=== PATIENT | male | born 1965 | race Caucasian/White ===

== ENCOUNTER 2016-10-07 09:17 | Emergency (ER) | payer MEDICARE, MEDICAID ==
[~2016-10-07] VITALS: Ht 167.6 cm; Wt 70.0 kg
[2016-10-07] MEDS ORDERED: ONDANSETRON 2MG/ML, 2ML IVPush ONE (10:30)
[2016-10-07] MEDS ORDERED: SODIUM CHLORIDE 0.9% 1,000ML IVBOLUS ONE (10:30)
[2016-10-07] MEDS ORDERED: SODIUM CHLORIDE FLUSH 10ML SYR IVF ONE (10:30)
[2016-10-07] MEDS ORDERED: ONDANSETRON 2MG/ML, 2ML ONE (10:47)
[2016-10-07] MEDS ORDERED: HYDROmorphone 1 MG/ML, 1ML ONE ×2 (10:47→11:19)
[2016-10-07 10:49] LABS: HEMOGLOBIN 15.5 g/dL (13.7-18.0)
[2016-10-07] MEDS: HYDROmorphone 1 MG/ML, 1ML IVPush PRN ×2 (10:58→11:23)
[2016-10-07 11:01] LABS: ASPARTATE AMINO TRANSFERASE 23 U/L (15-37); BLOOD UREA NITROGEN 17 mg/dL (7-18)
[2016-10-07] MEDS ORDERED: OMNIPAQUE 350 MG/ML, 100ML BOTTLE ONE (13:22)
[2016-10-07] MEDS ORDERED: Insulin SC (13:59)
[2016-10-07] MEDS ORDERED: METF500T4 PO (13:59)
[2016-10-07 14:05] VITALS: BP 123/64
== END 2016-10-07 14:13 | disposition home or self-care (01) ==
LOC: ED 13:12
DX: T18.5XXA Foreign body in anus and rectum, initial encounter (principal); K80.20 Calculus of gallbladder without cholecystitis without obstruction; E10.8 Type 1 diabetes mellitus with unspecified complications; Z79.4 Long term (current) use of insulin; X58.XXXA Exposure to other specified factors, initial encounter; Y93.89 Activity, other specified; Y92.89 Other specified places as the place of occurrence of the external cause; Y99.8 Other external cause status
CPT/HCPCS: 36415; 74020; 74177; 80053; 81003; 85025; 96361; 96374; 96375; 99285; J1170; J2405; J7030; Q9967

== ENCOUNTER 2016-11-13 06:34 | Emergency (ER) | payer MEDICARE, MEDICAID ==
[~2016-11-13] VITALS: Ht 177.8 cm; Wt 71.8 kg
[~2016-11-13 06:34] MED LIST: Insulin SC; METF500T4 PO
[2016-11-13] MEDS ORDERED: SODIUM CHLORIDE FLUSH 10ML SYR IVF ONE (07:00)
[2016-11-13] MEDS ORDERED: SODIUM CHLORIDE 0.9% 1,000ML IVBOLUS ONE (07:00)
[2016-11-13 07:27] LABS: BLOOD UREA NITROGEN 10 mg/dL (7-18)
[2016-11-13] MEDS ORDERED: INSU100V8 SQ (07:27)
[2016-11-13] MEDS ORDERED: INSU100C5 SQ-INSULIN (07:27)
[2016-11-13 09:05] VITALS: BP 137/77
== END 2016-11-13 09:22 | disposition home or self-care (01) ==
LOC: ED 06:52
DX: J02.8 Acute pharyngitis due to other specified organisms (principal); E11.9 Type 2 diabetes mellitus without complications; Z59.0 Homelessness
CPT/HCPCS: 36415; 71010; 80048; 82040; 85025; 93005; 96360; 96361; 99285; J7030

== ENCOUNTER 2018-05-29 22:31 | Inpatient (IN) | payer MEDICARE, MEDICAID ==
[~2018-05-29] VITALS: Ht 177.8 cm; Wt 68.0 kg
[~2018-05-29 22:31] MED LIST changes: +INSU100C5 SQ-INSULIN; +INSU100V8 SQ; +METF500T17 PO; -METF500T4 PO
[2018-05-29] MEDS ORDERED: ONDANSETRON 2MG/ML, 2ML IVPush ONE (23:00)
[2018-05-29] MEDS ORDERED: SODIUM CHLORIDE 0.9% 1,000ML IVBOLUS ONE (23:00)
[2018-05-29 23:07] LABS: MEAN CORPUSCULAR HGB CONC 34.3 g/dL (33.2-36.2); MEAN CORPUSCULAR VOLUME 93.3 fL (81-97); MEAN PLATELET VOLUME 7.6 fL (7.4-10.4); PLATELET COUNT 286 x10^3/uL (130-400); RED BLOOD COUNT 5.41 x10^6/uL (4.38-5.82); RED CELL DISTRIBUTION WIDTH 13.1 % (9.4-14.8)
[2018-05-29 23:19] LABS: ALANINE AMINOTRANSFERASE 18 U/L (12-78); ANION GAP 15 mmol/L (5-15); CALCIUM 9.3 mg/dL (8.5-10.1); CHLORIDE 97 mmol/L (98-107)
[2018-05-29 23:21] LABS: ALKALINE PHOSPHATASE 95 U/L (45-117); BILIRUBIN,TOTAL 0.5 mg/dL (0.2-1.0); TOTAL PROTEIN 8.4 g/dL (6.4-8.2)
[2018-05-29 23:24] LABS: MD YES
[2018-05-29 23:25] LABS: LYMPH#(MANUAL) 0.75 x10^3/uL (1-3.4); LYMPHS% (MANUAL) 3 % (22-44); MONOS#(MANUAL) 1.26 x10^3/uL (0.3-2.7); MONOS% (MANUAL) 5 % (2-9); SEG#(MANUAL) 23.09 x10^3/uL (1.8-6.8); SEGS% (MANUAL) 92 % (42-75)
[2018-05-29 23:26] LABS: <PLATELET ESTIMATE> ADEQUATE; <PLT MORPHOLOGY> NORMAL PLT MORPH; <RBC MORPHOLOGY> NORMAL
[2018-05-29 23:28] LABS: TROPONIN I < 0.015 ng/mL (0.000-0.045)
[2018-05-29] MEDS ORDERED: ONDANSETRON 2MG/ML, 2ML ONE (23:45)
[2018-05-30] MEDS ORDERED: SODIUM CHLORIDE 0.9% 1,000 ML IV ONE (04:16)
[2018-05-30] MEDS ORDERED: ONDANSETRON 2MG/ML, 2ML ONE (04:29)
[2018-05-30] MEDS ORDERED: ONDANSETRON 2MG/ML, 2ML IVPush PRN (04:30)
[2018-05-30] MEDS ORDERED: METOCLOPRAMIDE 5 MG/ML, 2ML IVPush PRN (05:00)
[2018-05-30] MEDS ORDERED: hydrALAzine 20 MG/ML, 1ML IVPush PRN (05:00)
[2018-05-30] MEDS ORDERED: ACETAMINOPHEN 325 MG TABLET PO PRN (05:00)
[2018-05-30 05:17] VITALS: BP 163/104
[2018-05-30] MEDS: LORazepam 2 MG/ML, 1ML IVPush PRN (05:39)
[2018-05-30] MEDS: SODIUM CHLORIDE 0.9% 1,000 ML IV SCH ×2 (05:41→14:30)
[2018-05-30] MEDS: POTASSIUM CHLORIDE 20 MEQ, MAGNESIUM SULFATE 2 GM, THIAMINE 200 MG, MVI ADULT 10 ML, FO... IV SCH ×2 (05:41→08:50)
[2018-05-30 07:00] VITALS: BP 125/82
[2018-05-30] MEDS ORDERED: INSULIN LISPRO 100 UNITS/ML, PEN SQ-INSULIN SCH (07:00)
[2018-05-30] MEDS: HEPARIN 5,000 UNITS/ML, 1ML SQ SCH ×2 (08:18→21:10)
[2018-05-30] MEDS: NICOTINE 21 MG/24 HR PATCH.TD24 TD SCH (08:18)
[2018-05-30] MEDS: INSULIN GLARGINE 100 UNITS/ML, PEN SQ-INSULIN SCH ×2 (08:19→21:15)
[2018-05-30] MEDS: INSULIN LISPRO 100 UNITS/ML, PEN SQ-INSULIN SCH ×4 (08:19→21:00)
[2018-05-30] MEDS ORDERED: SODIUM CHLORIDE 0.9% 1,000ML IVBOLUS ONE ×2 (08:30→10:00)
[2018-05-30 08:45] LABS: ALBUMIN 3.3 g/dL (3.4-5.0); ANION GAP 16 mmol/L (5-15); CHLORIDE 101 mmol/L (98-107); CREATININE 1.24 mg/dL (0.7-1.3)
[2018-05-30] MEDS ORDERED: INSULIN GLARGINE 100 UNITS/ML, PEN SQ-INSULIN STA (08:52)
[2018-05-30 09:38] LABS: MICROSCOPIC NOT IND
[2018-05-30 09:47] LABS: AMPHETAMINE SCREEN, URINE Negative (Negative); BARBITURATE SCREEN, URINE Negative (Negative); BENZODIAZEPINE SCREEN, URINE Negative (Negative); CANNABINOID SCREEN, URINE Negative (Negative); COCAINE SCREEN, URINE Negative (Negative); METHADONE SCREEN, URINE Negative (Negative); OPIATE SCREEN, URINE Negative (Negative)
[2018-05-30 10:17] LABS: O2 FLOW ROOM AIR L/min
[2018-05-30 10:45] LABS: CULTURE INDICATED? NO
[2018-05-30 11:51] LABS: ACETONE, URINE Large (80mg/dL) (Negative)
[2018-05-30 12:14] LABS: ACETONE, SERUM Large (80mg/dL) mg/dL (Negative)
[2018-05-30 13:10] VITALS: BP 151/81
[2018-05-30] MEDS: ONDANSETRON 2MG/ML, 2ML IVPush PRN (16:28)
[2018-05-30 17:42] LABS: ANION GAP 8 mmol/L (5-15); CALCIUM 7.5 mg/dL (8.5-10.1); CHLORIDE 108 mmol/L (98-107)
[2018-05-30 17:43] LABS: CREATININE 0.95 mg/dL (0.7-1.3)
[2018-05-30 19:56] VITALS: BP 162/92
[2018-05-30] MEDS: PROMETHAZINE 25 MG/ML, 1ML IM PRN (21:20)
[2018-05-30 23:06] LABS: ANION GAP 10 mmol/L (5-15); CALCIUM 7.8 mg/dL (8.5-10.1); CHLORIDE 105 mmol/L (98-107); CREATININE 0.65 mg/dL (0.7-1.3)
[2018-05-31 02:11] VITALS: BP 143/97
[2018-05-31] MEDS: ONDANSETRON 2MG/ML, 2ML IVPush PRN ×2 (04:38→17:45)
[2018-05-31] MEDS: SODIUM CHLORIDE 0.9% 1,000 ML IV SCH ×2 (05:00→14:30)
[2018-05-31 05:34] LABS: BASOPHILS # (AUTO) 0.04 x10^3/uL (0-0.1); BASOPHILS % (AUTO) 0 % (0-1); EOSINOPHILS % (AUTO) 0 % (1-7); LYMPHOCYTES # (AUTO) 2.79 x10^3/uL (1-3.4); LYMPHOCYTES % (AUTO) 21 % (22-44); MD NO; MEAN CORPUSCULAR HEMOGLOBIN 32.5 pg (27.5-34.5); MEAN CORPUSCULAR HGB CONC 35.1 g/dL (33.2-36.2); MEAN CORPUSCULAR VOLUME 92.7 fL (81-97); MEAN PLATELET VOLUME 8.2 fL (7.4-10.4); MONOCYTES # (AUTO) 0.84 x10^3/uL (0.2-0.8); MONOCYTES % (AUTO) 6 % (2-9); NEUTROPHILS # (AUTO) 9.63 x10^3/uL (1.8-6.8); NEUTROPHILS % (AUTO) 72 % (42-75); PLATELET COUNT 207 x10^3/uL (130-400); RED BLOOD COUNT 4.64 x10^6/uL (4.38-5.82); RED CELL DISTRIBUTION WIDTH 12.9 % (9.4-14.8)
[2018-05-31 05:41] LABS: ALBUMIN 3.1 g/dL (3.4-5.0); ANION GAP 12 mmol/L (5-15); CALCIUM 7.7 mg/dL (8.5-10.1); CHLORIDE 101 mmol/L (98-107)
[2018-05-31 05:47] LABS: ALANINE AMINOTRANSFERASE 14 U/L (12-78); ALKALINE PHOSPHATASE 72 U/L (45-117); BILIRUBIN,TOTAL 0.8 mg/dL (0.2-1.0); CREATININE 0.67 mg/dL (0.7-1.3); TOTAL PROTEIN 6.6 g/dL (6.4-8.2)
[2018-05-31] MEDS ORDERED: POTASSIUM CHLORIDE 20 MEQ TAB.ER.PRT PO ONE (06:30)
[2018-05-31] MEDS: INSULIN LISPRO 100 UNITS/ML, PEN SQ-INSULIN SCH ×4 (07:00→20:44)
[2018-05-31 07:26] VITALS: BP_SYST 112; BP_SYST 146; BP_DIAS 74; BP_DIAS 92
[2018-05-31] MEDS: INSULIN GLARGINE 100 UNITS/ML, PEN SQ-INSULIN SCH ×2 (08:16→21:00)
[2018-05-31] MEDS: HEPARIN 5,000 UNITS/ML, 1ML SQ SCH ×2 (08:17→20:41)
[2018-05-31] MEDS: NICOTINE 21 MG/24 HR PATCH.TD24 TD SCH (08:17)
[2018-05-31] MEDS: PROMETHAZINE 25 MG/ML, 1ML IM PRN ×2 (08:57→22:18)
[2018-05-31 12:06] LABS: ANION GAP 10 mmol/L (5-15); CALCIUM 7.6 mg/dL (8.5-10.1); CHLORIDE 99 mmol/L (98-107)
[2018-05-31 13:08] VITALS: BP 137/89
[2018-05-31 17:35] LABS: ANION GAP 10 mmol/L (5-15); CHLORIDE 100 mmol/L (98-107); CREATININE 0.76 mg/dL (0.7-1.3)
[2018-05-31 19:44] VITALS: BP 154/98
[2018-05-31] MEDS: POTASSIUM CHLORIDE 20 MEQ TAB.ER.PRT PO SCH (20:38)
[2018-05-31] MEDS ORDERED: GLUCAGON 1 MG IM PRN (23:00)
[2018-05-31] MEDS: SODIUM CHLORIDE FLUSH 10ML SYR IVF SCH (23:00)
[2018-05-31] MEDS ORDERED: DEXTROSE 50%, 50ML SYRINGE IVPush PRN (23:00)
[2018-05-31] MEDS ORDERED: DEXTROSE 4 GM TAB.CHEW PO PRN (23:00)
[2018-05-31 23:37] LABS: CHLORIDE 99 mmol/L (98-107)
[2018-05-31 23:38] LABS: ANION GAP 11 mmol/L (5-15); CALCIUM 8.2 mg/dL (8.5-10.1); CREATININE 0.63 mg/dL (0.7-1.3)
[2018-06-01] MEDS: ONDANSETRON 2MG/ML, 2ML IVPush PRN ×2 (01:22→22:15)
[2018-06-01 02:35] VITALS: BP 154/106
[2018-06-01 04:21] VITALS: BP 142/91
[2018-06-01] MEDS: SODIUM CHLORIDE 0.9% 1,000 ML IV SCH ×2 (05:44→16:23)
[2018-06-01] MEDS: INSULIN LISPRO 100 UNITS/ML, PEN SQ-INSULIN SCH ×4 (07:00→22:01)
[2018-06-01] MEDS: SODIUM CHLORIDE FLUSH 10ML SYR IVF SCH ×2 (07:02→22:02)
[2018-06-01 07:29] VITALS: BP 127/90
[2018-06-01] MEDS: ONDANSETRON ODT 4 MG PO PRN ×2 (07:51→16:23)
[2018-06-01] MEDS: HEPARIN 5,000 UNITS/ML, 1ML SQ SCH ×2 (07:52→22:01)
[2018-06-01] MEDS: NICOTINE 21 MG/24 HR PATCH.TD24 TD SCH (07:55)
[2018-06-01] MEDS: POTASSIUM CHLORIDE 20 MEQ TAB.ER.PRT PO SCH ×2 (07:59→16:31)
[2018-06-01 08:10] LABS: ANION GAP 10 mmol/L (5-15); BASOPHILS # (AUTO) 0.02 x10^3/uL (0-0.1); BASOPHILS % (AUTO) 0 % (0-1); CALCIUM 8.3 mg/dL (8.5-10.1); CHLORIDE 99 mmol/L (98-107); CREATININE 0.64 mg/dL (0.7-1.3); EOSINOPHILS # (AUTO) 0.01 x10^3/uL (0-0.4); EOSINOPHILS % (AUTO) 0 % (1-7); LYMPHOCYTES # (AUTO) 2.58 x10^3/uL (1-3.4); LYMPHOCYTES % (AUTO) 29 % (22-44); MD NO; MEAN CORPUSCULAR HEMOGLOBIN 32.3 pg (27.5-34.5); MEAN CORPUSCULAR HGB CONC 34.7 g/dL (33.2-36.2); MEAN PLATELET VOLUME 7.8 fL (7.4-10.4); MONOCYTES # (AUTO) 0.69 x10^3/uL (0.2-0.8); MONOCYTES % (AUTO) 8 % (2-9); NEUTROPHILS # (AUTO) 5.48 x10^3/uL (1.8-6.8); NEUTROPHILS % (AUTO) 62 % (42-75); PLATELET COUNT 217 x10^3/uL (130-400); RED BLOOD COUNT 4.85 x10^6/uL (4.38-5.82); RED CELL DISTRIBUTION WIDTH 12.8 % (9.4-14.8)
[2018-06-01 08:11] LABS: ALBUMIN 3.1 g/dL (3.4-5.0)
[2018-06-01] MEDS: INSULIN GLARGINE 100 UNITS/ML, PEN SQ-INSULIN SCH ×3 (09:00→22:02)
[2018-06-01 12:09] VITALS: BP 135/90
[2018-06-01] MEDS ORDERED: POTASSIUM CHLORIDE 20 MEQ TAB.ER.PRT PO ONE (18:00)
[2018-06-01 20:23] VITALS: BP 147/102
[2018-06-02] MEDS: SODIUM CHLORIDE 0.9% 1,000 ML IV SCH ×3 (02:10→21:17)
[2018-06-02 02:51] VITALS: BP 145/95
[2018-06-02] MEDS: INSULIN LISPRO 100 UNITS/ML, PEN SQ-INSULIN SCH ×4 (07:00→21:17)
[2018-06-02 07:14] LABS: ALBUMIN 2.8 g/dL (3.4-5.0); ANION GAP 8 mmol/L (5-15); CALCIUM 8.7 mg/dL (8.5-10.1); CHLORIDE 104 mmol/L (98-107); CREATININE 0.65 mg/dL (0.7-1.3)
[2018-06-02 07:32] VITALS: BP 113/74
[2018-06-02] MEDS: INSULIN GLARGINE 100 UNITS/ML, PEN SQ-INSULIN SCH ×2 (07:47→21:17)
[2018-06-02] MEDS: SODIUM CHLORIDE FLUSH 10ML SYR IVF SCH ×2 (09:00→20:53)
[2018-06-02] MEDS: HEPARIN 5,000 UNITS/ML, 1ML SQ SCH ×2 (09:54→20:52)
[2018-06-02] MEDS: NICOTINE 21 MG/24 HR PATCH.TD24 TD SCH (09:55)
[2018-06-02] MEDS ORDERED: POTASSIUM CHLORIDE 20 MEQ TAB.ER.PRT PO ONE (12:30)
[2018-06-02 13:33] VITALS: BP 167/95
[2018-06-02] MEDS: ONDANSETRON 2MG/ML, 2ML IVPush PRN ×2 (13:36→20:53)
[2018-06-02 19:36] VITALS: BP 164/105
[2018-06-03 02:23] VITALS: BP 130/83
[2018-06-03 07:42] VITALS: BP 97/66
[2018-06-03] MEDS: INSULIN LISPRO 100 UNITS/ML, PEN SQ-INSULIN SCH ×4 (08:04→20:36)
[2018-06-03] MEDS: SODIUM CHLORIDE 0.9% 1,000 ML IV SCH (08:06)
[2018-06-03] MEDS: SODIUM CHLORIDE FLUSH 10ML SYR IVF SCH ×2 (08:06→20:35)
[2018-06-03 08:19] LABS: ALBUMIN 2.8 g/dL (3.4-5.0); ANION GAP 7 mmol/L (5-15); CALCIUM 8.3 mg/dL (8.5-10.1); CHLORIDE 100 mmol/L (98-107); CREATININE 0.78 mg/dL (0.7-1.3)
[2018-06-03] MEDS: HEPARIN 5,000 UNITS/ML, 1ML SQ SCH ×2 (09:25→20:35)
[2018-06-03] MEDS: NICOTINE 21 MG/24 HR PATCH.TD24 TD SCH (09:26)
[2018-06-03] MEDS: INSULIN GLARGINE 100 UNITS/ML, PEN SQ-INSULIN SCH (09:26)
[2018-06-03 12:56] VITALS: BP 112/72
[2018-06-03 19:43] VITALS: BP 143/83
[2018-06-03] MEDS ORDERED: INSULIN GLARGINE 100 UNITS/ML, PEN SQ-INSULIN SCH (21:00)
[2018-06-04 01:09] VITALS: BP 122/73
[2018-06-04] MEDS: LORazepam 2 MG/ML, 1ML IVPush PRN (02:58)
[2018-06-04] MEDS: INSULIN LISPRO 100 UNITS/ML, PEN SQ-INSULIN SCH (06:15)
[2018-06-04 07:42] LABS: CALCIUM 8.3 mg/dL (8.5-10.1); CHLORIDE 103 mmol/L (98-107)
[2018-06-04 07:45] LABS: ALBUMIN 2.7 g/dL (3.4-5.0); ANION GAP 7 mmol/L (5-15); CREATININE 0.72 mg/dL (0.7-1.3)
[2018-06-04] MEDS: HEPARIN 5,000 UNITS/ML, 1ML SQ SCH (08:05)
[2018-06-04] MEDS: NICOTINE 21 MG/24 HR PATCH.TD24 TD SCH (08:05)
[2018-06-04] MEDS: SODIUM CHLORIDE FLUSH 10ML SYR IVF SCH (08:05)
[2018-06-04 08:46] VITALS: BP 106/62
== END 2018-06-04 09:22 | disposition left against medical advice (07) | DRG 682 ==
LOC: ED 22:50 → EDIP 05-30 04:16 → 4NOR 05-30 04:59
PROVIDERS: ADMIT Hospitalist; ATTEND Hospitalist
DX: N17.9 Acute kidney failure, unspecified (principal); E11.10 Type 2 diabetes mellitus with ketoacidosis without coma; R65.11 Systemic inflammatory response syndrome (SIRS) of non-infectious origin with acute organ dysfunction; E87.1 Hypo-osmolality and hyponatremia; F17.200 Nicotine dependence, unspecified, uncomplicated; E86.1 Hypovolemia; F10.20 Alcohol dependence, uncomplicated; Z53.21 Procedure and treatment not carried out due to patient leaving prior to being seen by health care provider; Z59.0 Homelessness; E11.649 Type 2 diabetes mellitus with hypoglycemia without coma; E86.0 Dehydration; E87.6 Hypokalemia; F25.9 Schizoaffective disorder, unspecified; M54.2 Cervicalgia; M54.9 Dorsalgia, unspecified; R00.0 Tachycardia, unspecified; E11.65 Type 2 diabetes mellitus with hyperglycemia; Z79.4 Long term (current) use of insulin
CPT/HCPCS: 36415; 36600; 71045; 80048; 80053; 80069; 80307; 81003; 82009; 82010; 82803; 82947; 82962; 83605; 83690; 83735; 84100; 84145; 84484; 85025; 87040; 93005; 96361; 96374; 96375; 99285; G0378; J1644; J2405; J2550; J3411; J3475; J3480; J7042; Q0162; J1815; J2060; J2765; J7030

== ENCOUNTER 2018-08-06 19:57 | Inpatient (IN) | payer MEDICAID, MEDICARE ==
[~2018-08-06] VITALS: Ht 175.3 cm; Wt 69.7 kg
[2018-08-06] MEDS ORDERED: CALCIUM CHLORIDE 10%, 10ML SYR ONE (20:16)
[2018-08-06] MEDS ORDERED: SODIUM BICARBONATE 1 MEQ/ML, 50ML VIAL ONE (20:17)
[2018-08-06] MEDS ORDERED: FUROSEMIDE 40 MG/4 ML ONE (20:17)
[2018-08-06] MEDS ORDERED: DEXTROSE 50%, 50ML SYRINGE ONE (20:17)
[2018-08-06] MEDS ORDERED: INSULIN REGULAR 100 UNITS/ML, 3ML VIAL ONE (20:18)
[2018-08-06 20:21] LABS: MEAN CORPUSCULAR HEMOGLOBIN 31.2 pg (27.5-34.5); MEAN CORPUSCULAR HGB CONC 32.6 g/dL (33.2-36.2); MEAN CORPUSCULAR VOLUME 95.5 fL (81-97); MEAN PLATELET VOLUME 9.1 fL (7.4-10.4); PLATELET COUNT 338 x10^3/uL (130-400); RED BLOOD COUNT 5.46 x10^6/uL (4.38-5.82); RED CELL DISTRIBUTION WIDTH 13.6 % (9.4-14.8)
[2018-08-06] MEDS ORDERED: INSULIN REGULAR 100 UNITS/ML, 3ML VIAL IVPush ONE (20:30)
[2018-08-06] MEDS ORDERED: SODIUM BICARB 8.4%, 50ML SYRINGE IVPush ONE (20:30)
[2018-08-06] MEDS ORDERED: SODIUM CHLORIDE 0.9% 1,000ML IVBOLUS ONE (20:30)
[2018-08-06] MEDS ORDERED: ALBUTEROL 0.5%, 20ML NPPB ONE (20:30)
[2018-08-06] MEDS ORDERED: CALCIUM CHLORIDE 10%, 10ML SYR IVPush ONE (20:30)
[2018-08-06] MEDS ORDERED: SODIUM POLY SULFONATE UDC 15 GM/60 ML PO ONE (20:30)
[2018-08-06] MEDS ORDERED: SODIUM CHLORIDE FLUSH 10ML SYR IVF ONE ×2 (20:30)
[2018-08-06] MEDS ORDERED: DEXTROSE 50%, 50ML SYRINGE IVPush ONE (20:30)
[2018-08-06] MEDS ORDERED: FUROSEMIDE 40 MG/4 ML IVPush ONE (20:30)
[2018-08-06 20:31] LABS: ALANINE AMINOTRANSFERASE 17 U/L (12-78); ALBUMIN 3.9 g/dL (3.4-5.0); ANION GAP 32 mmol/L (5-15); CALCIUM 10.1 mg/dL (8.5-10.1); CHLORIDE 91 mmol/L (98-107); CREATININE 2.15 mg/dL (0.7-1.3)
[2018-08-06] MEDS ORDERED: ALBUTEROL 0.5%, 20ML ONE (20:31)
[2018-08-06 20:33] LABS: ALKALINE PHOSPHATASE 133 U/L (45-117); BILIRUBIN,TOTAL 0.7 mg/dL (0.2-1.0); TOTAL PROTEIN 8.9 g/dL (6.4-8.2)
[2018-08-06 20:36] LABS: ACETONE, SERUM Large (80mg/dL) mg/dL (Negative)
[2018-08-06 20:52] LABS: MD YES
[2018-08-06] MEDS ORDERED: ONDANSETRON 2MG/ML, 2ML ONE (20:54)
[2018-08-06 20:55] LABS: BAND#(MANUAL) 0.62 x10^3/uL; BANDS%(MANUAL) 4 % (0-7); BASOS#(MANUAL) 0.16 x10^3/uL (0-0.1); BASOS% (MANUAL) 1 % (0-1); LYMPH#(MANUAL) 2.17 x10^3/uL (1-3.4); LYMPHS% (MANUAL) 14 % (22-44); METAMYELOCYTES# (MANUAL) 0.31 x10^3/uL (0-0); METAMYELOCYTES% (MANUAL) 2 % (0-1); MONOS#(MANUAL) 0.93 x10^3/uL (0.3-2.7); MONOS% (MANUAL) 6 % (2-9); SEG#(MANUAL) 11.32 x10^3/uL (1.8-6.8); SEGS% (MANUAL) 73 % (42-75)
[2018-08-06 20:56] LABS: <PLATELET ESTIMATE> ADEQUATE; <PLT MORPHOLOGY> NORMAL PLT MORPH; <RBC MORPHOLOGY> NORMAL
[2018-08-06] MEDS ORDERED: REGULAR INSULIN 62.5 UNITS in SODIUM CHLORIDE 0.9% 249.375 ML IV PRN (21:15)
[2018-08-06] MEDS ORDERED: PANTOPRAZOLE 40 MG IV ONE (21:28)
[2018-08-06] MEDS: PANTOPRAZOLE 40 MG IV IVPush SCH (21:29)
[2018-08-06] MEDS ORDERED: BISACODYL 10 MG SUPP PR PRN (21:30)
[2018-08-06] MEDS ORDERED: DOCUSATE 100 MG CAPSULE PO PRN (21:30)
[2018-08-06] MEDS ORDERED: OXYcodone IR 5MG TABLET PO PRN (21:30)
[2018-08-06] MEDS ORDERED: morphine SULFATE 10 MG/ML, 1ML IVPush PRN (21:30)
[2018-08-06] MEDS ORDERED: ONDANSETRON 2MG/ML, 2ML IVPush PRN (21:30)
[2018-08-06] MEDS ORDERED: PROMETHAZINE 25 MG/ML, 1ML IM PRN (21:30)
[2018-08-06] MEDS ORDERED: ONDANSETRON ODT 4 MG PO PRN (21:30)
[2018-08-06] MEDS ORDERED: LABETALOL 5MG/ML, 20ML IVPush PRN (21:30)
[2018-08-06] MEDS ORDERED: POLYETHYLENE GLYCOL 17 GM PACKET PO PRN (21:30)
[2018-08-06] MEDS ORDERED: hydrALAzine 20 MG/ML, 1ML IVPush PRN (21:30)
[2018-08-06] MEDS: SODIUM CHLORIDE 0.9% 1,000 ML IV SCH (21:30)
[2018-08-06 22:34] LABS: HEMOGLOBIN A1C 10.2 % (4.2-6.3)
--- NOTE | 2018-08-06 23:34 | NUR ---
FSBS READ "HIGH". INSULINE INCREASED PER PROTOCOL. NOW RUNNING AT 7.2 UNITS/HR. CONFIRMED WITH DOE AWAD
[2018-08-06 23:57] LABS: MICROSCOPIC NOT IND
[2018-08-07 00:10] LABS: CULTURE INDICATED? NO
[2018-08-07 00:34] LABS: ANION GAP 26 mmol/L (5-15); CALCIUM 9.1 mg/dL (8.5-10.1); CHLORIDE 99 mmol/L (98-107); CREATININE 1.62 mg/dL (0.7-1.3)
[2018-08-07 00:43] LABS: FREE T4 (FREE THYROXINE) 1.07 ng/dL (0.76-1.46)
[2018-08-07] MEDS ORDERED: hydrALAzine 20 MG/ML, 1ML ONE (00:58)
--- NOTE | 2018-08-07 01:04 | NUR ---
PT MOSTLY SLEEPING. PT TOLERATING SMALL AMOUNT OF ICE CHIPS AT THIS TIME. PT DENIES FURTHER NEEDS AT THIS TIME.
--- NOTE | 2018-08-07 02:45 | NUR ---
PT MOSTLY SLEEPING. NAD. BED RAILS UPX2. CALL LIGHT ON LAP.
[2018-08-07 03:14] LABS: MEAN CORPUSCULAR HEMOGLOBIN 31.3 pg (27.5-34.5); MEAN CORPUSCULAR HGB CONC 33.7 g/dL (33.2-36.2); MEAN CORPUSCULAR VOLUME 92.9 fL (81-97); MEAN PLATELET VOLUME 8.4 fL (7.4-10.4); PLATELET COUNT 306 x10^3/uL (130-400); RED BLOOD COUNT 5.02 x10^6/uL (4.38-5.82); RED CELL DISTRIBUTION WIDTH 13.1 % (9.4-14.8)
[2018-08-07 03:25] LABS: ANION GAP 14 mmol/L (5-15); CALCIUM 8.4 mg/dL (8.5-10.1); CHLORIDE 108 mmol/L (98-107); CHOLESTEROL, TOTAL 211 mg/dL (140-239); CREATININE 1.43 mg/dL (0.7-1.3)
[2018-08-07 03:28] LABS: CHOL/HDL RATIO 4.6; HDL CHOL % 22 % (26-37); HDL CHOLESTEROL (DIRECT) 46 mg/dL (40-60); LDL CHOLESTEROL,CALCULATED 143 mg/dL (54-169); LDL/HDL RATIO 3.1 (0.5-3.0); MD YES; TRIGLYCERIDES 112 mg/dL (50-200); VLDL CHOLESTEROL 22 mg/dL (0-25)
[2018-08-07 03:29] LABS: BAND#(MANUAL) 0.64 x10^3/uL; BANDS%(MANUAL) 6 % (0-7); LYMPH#(MANUAL) 1.27 x10^3/uL (1-3.4); LYMPHS% (MANUAL) 12 % (22-44); MONOS#(MANUAL) 0.42 x10^3/uL (0.3-2.7); MONOS% (MANUAL) 4 % (2-9); SEG#(MANUAL) 8.27 x10^3/uL (1.8-6.8); SEGS% (MANUAL) 78 % (42-75)
[2018-08-07 03:30] LABS: <PLATELET ESTIMATE> ADEQUATE; <PLT MORPHOLOGY> NORMAL PLT MORPH; <RBC MORPHOLOGY> NORMAL
--- NOTE | 2018-08-07 04:12 | NUR ---
PT AWOKEN FOR FINGER STICK. PT GIVEN BLANKET PER REQUEST. PT DENIES FURTHER NEEDS AT THIS TIME.
--- NOTE | 2018-08-07 06:10 | NUR ---
PER CONVERSATION WITH DR GARG, ALISON CURRENT INSULIN ORDERS. SHE WILL WRITE NEW ORDERS BUT FOR THE TIME BEING RUN INSULIN AT 4 UNITS/HOUR
--- NOTE | 2018-08-07 06:12 | NUR ---
CALLED PHARMACY AND REQUESTED NEW INSULIN DRIP BAG
[2018-08-07] MEDS ORDERED: REGULAR INSULIN 62.5 UNITS in SODIUM CHLORIDE 0.9% 249.375 ML IV PRN (06:30)
--- NOTE | 2018-08-07 07:11 | NUR ---
RECEIVED REPORT FROM JAC AWAD. PT RESTING IN BED. BLOOD GLUCOSE RECHECKED AT 270. INSULIN GTT STARTED AT 1 UNIT PER HOUR.
--- NOTE | 2018-08-07 07:17 | NUR ---
BLOOD GLUCOSE 270 STARTED INSULIN GTT AT 1 UNIT/HR
[2018-08-07 07:19] LABS: ANION GAP 11 mmol/L (5-15); CALCIUM 9.5 mg/dL (8.5-10.1); CHLORIDE 107 mmol/L (98-107); CREATININE 1.47 mg/dL (0.7-1.3)
--- NOTE | 2018-08-07 08:19 | NUR ---
BLOOD GLUCOSE RECHECK AT 293.
--- NOTE | 2018-08-07 08:21 | NUR ---
293 GLUCOSE INCREASE INSULIN GTT TO 2 UNITS PER HOUR.
--- NOTE | 2018-08-07 08:41 | NUR ---
PT GIVEN DIET SPRITE SIPS.
[2018-08-07] MEDS: SODIUM CHLORIDE 0.9% 1,000 ML IV SCH ×5 (09:18→21:51)
[2018-08-07] MEDS ORDERED: HEPARIN 5,000 UNITS/ML, 1ML ONE (09:19)
--- NOTE | 2018-08-07 09:45 | NUR ---
BLOOD GLUCOSE 275.
--- NOTE | 2018-08-07 09:46 | NUR ---
CALLED DR. COLBY TO HAVE A CLEAR LIQUID DIABETIC DIET.
--- NOTE | 2018-08-07 09:48 | NUR ---
INSULIN GTT INCREASED TO 3 UNITS PER HOUR.
--- NOTE | 2018-08-07 10:12 | NUR ---
report given to casey crawford.
--- NOTE | 2018-08-07 10:22 | NUR ---
pt transferred to floor on potline monitor.
[2018-08-07] MEDS: PANTOPRAZOLE 40 MG IV IVPush SCH (10:58)
[2018-08-07] MEDS ORDERED: DEXTROSE 4 GM TAB.CHEW PO PRN (11:00)
[2018-08-07] MEDS ORDERED: GLUCAGON 1 MG IM PRN (11:00)
[2018-08-07] MEDS ORDERED: DEXTROSE 50%, 50ML SYRINGE IVPush PRN (11:00)
[2018-08-07] MEDS ORDERED: INSULIN GLARGINE 100 UNITS/ML, PEN SQ-INSULIN SCH (11:00)
[2018-08-07] MEDS: INSULIN LISPRO 100 UNITS/ML, PEN SQ-INSULIN SCH ×3 (11:00→22:50)
[2018-08-07] MEDS: HEPARIN 5,000 UNITS/ML, 1ML SQ SCH ×2 (12:46→21:50)
[2018-08-07 21:02] VITALS: BP 148/90
[2018-08-07] MEDS: SODIUM CHLORIDE FLUSH 10ML SYR IVF SCH (21:51)
[2018-08-08 02:45] VITALS: BP 143/70
[2018-08-08] MEDS: HEPARIN 5,000 UNITS/ML, 1ML SQ SCH ×3 (05:22→21:18)
[2018-08-08 05:44] LABS: BASOPHILS # (AUTO) 0.03 x10^3/uL (0-0.1); BASOPHILS % (AUTO) 0 % (0-1); EOSINOPHILS # (AUTO) 0.01 x10^3/uL (0-0.4); EOSINOPHILS % (AUTO) 0 % (1-7); LYMPHOCYTES # (AUTO) 1.68 x10^3/uL (1-3.4); LYMPHOCYTES % (AUTO) 19 % (22-44); MD NO; MEAN CORPUSCULAR HEMOGLOBIN 32.1 pg (27.5-34.5); MEAN CORPUSCULAR HGB CONC 34.7 g/dL (33.2-36.2); MEAN CORPUSCULAR VOLUME 92.7 fL (81-97); MEAN PLATELET VOLUME 8.5 fL (7.4-10.4); MONOCYTES # (AUTO) 0.92 x10^3/uL (0.2-0.8); MONOCYTES % (AUTO) 10 % (2-9); NEUTROPHILS # (AUTO) 6.28 x10^3/uL (1.8-6.8); NEUTROPHILS % (AUTO) 71 % (42-75); PLATELET COUNT 261 x10^3/uL (130-400); RED BLOOD COUNT 4.37 x10^6/uL (4.38-5.82); RED CELL DISTRIBUTION WIDTH 13.8 % (9.4-14.8)
[2018-08-08 05:52] LABS: CHLORIDE 104 mmol/L (98-107)
[2018-08-08 05:55] LABS: ANION GAP 9 mmol/L (5-15); CALCIUM 8.8 mg/dL (8.5-10.1); CREATININE 0.93 mg/dL (0.7-1.3)
[2018-08-08] MEDS: SODIUM CHLORIDE 0.9% 1,000 ML IV SCH ×2 (06:29→16:13)
[2018-08-08] MEDS: NEUTRA PHOS K 250 MG TABLET PO SCH ×2 (07:58→21:18)
[2018-08-08] MEDS: PANTOPRAZOLE 40 MG IV IVPush SCH (07:59)
[2018-08-08] MEDS: INSULIN GLARGINE 100 UNITS/ML, PEN SQ-INSULIN SCH (07:59)
[2018-08-08] MEDS: INSULIN LISPRO 100 UNITS/ML, PEN SQ-INSULIN SCH ×4 (07:59→21:37)
[2018-08-08] MEDS: SODIUM CHLORIDE FLUSH 10ML SYR IVF SCH ×2 (08:00→21:18)
[2018-08-08] MEDS ORDERED: FOLIC ACID 5 MG/ML IM ONE (09:00)
[2018-08-08 09:47] VITALS: BP 115/70
[2018-08-08] MEDS: THIAMINE 100MG TABLET PO SCH (11:08)
[2018-08-08] MEDS: MULTIVITAMINS/MINERALS TABLET PO SCH (11:08)
[2018-08-08] MEDS ORDERED: FOLIC ACID 1 MG TABLET PO ONE (11:30)
[2018-08-08 14:10] VITALS: BP 123/75
[2018-08-08 18:44] VITALS: BP 151/72
[2018-08-09 01:35] VITALS: BP 112/53
[2018-08-09] MEDS: SODIUM CHLORIDE 0.9% 1,000 ML IV SCH ×2 (02:06→14:38)
[2018-08-09 05:19] LABS: ALANINE AMINOTRANSFERASE 10 U/L (12-78); ALBUMIN 2.3 g/dL (3.4-5.0); ANION GAP 6 mmol/L (5-15); CALCIUM 7.8 mg/dL (8.5-10.1); CHLORIDE 102 mmol/L (98-107); CREATININE 0.55 mg/dL (0.7-1.3)
[2018-08-09 05:21] LABS: ALKALINE PHOSPHATASE 87 U/L (45-117); BILIRUBIN,TOTAL 0.2 mg/dL (0.2-1.0); TOTAL PROTEIN 5.7 g/dL (6.4-8.2)
[2018-08-09] MEDS: HEPARIN 5,000 UNITS/ML, 1ML SQ SCH ×3 (06:35→21:36)
[2018-08-09 06:48] VITALS: BP 139/81
[2018-08-09] MEDS ORDERED: MAGNESIUM SULFATE 3 GM in SODIUM CHLORIDE 0.9% 100 ML IV ONE (07:00)
[2018-08-09] MEDS ORDERED: POTASSIUM CHLORIDE 10% 40 MEQ/30 ML UDC PO ONE (07:00)
[2018-08-09] MEDS: PANTOPRAZOLE 40 MG IV IVPush SCH (07:48)
[2018-08-09] MEDS: THIAMINE 100MG TABLET PO SCH (07:48)
[2018-08-09] MEDS: NEUTRA PHOS K 250 MG TABLET PO SCH ×2 (07:48→21:21)
[2018-08-09] MEDS: MULTIVITAMINS/MINERALS TABLET PO SCH (07:48)
[2018-08-09] MEDS: CALCIUM CARBONATE 500 MG TABLET PO SCH ×2 (07:48→21:21)
[2018-08-09] MEDS: INSULIN GLARGINE 100 UNITS/ML, PEN SQ-INSULIN SCH (07:49)
[2018-08-09] MEDS: INSULIN LISPRO 100 UNITS/ML, PEN SQ-INSULIN SCH ×4 (07:49→21:21)
[2018-08-09] MEDS: SODIUM CHLORIDE FLUSH 10ML SYR IVF SCH ×2 (07:50→21:36)
[2018-08-09] MEDS: GUAIFENESIN 200 MG TABLET PO PRN ×2 (09:51→21:21)
[2018-08-09 14:57] VITALS: BP 145/85
[2018-08-09 19:42] VITALS: BP 141/83
[2018-08-09] MEDS ORDERED: INSULIN GLARGINE 100 UNITS/ML, PEN SQ-INSULIN SCH (21:00)
[2018-08-10 00:25] VITALS: BP 136/66
[2018-08-10] MEDS: SODIUM CHLORIDE 0.9% 1,000 ML IV SCH ×3 (00:29→21:39)
[2018-08-10] MEDS: BACITRACIN/POLYMYXIN B OPHTH OINT 3.5GM RIGHTEYE SCH ×2 (00:29→07:47)
[2018-08-10 05:36] LABS: ALBUMIN 2.4 g/dL (3.4-5.0); ANION GAP 5 mmol/L (5-15); CALCIUM 8.4 mg/dL (8.5-10.1); CHLORIDE 103 mmol/L (98-107)
[2018-08-10 05:40] LABS: ALANINE AMINOTRANSFERASE 10 U/L (12-78); ALKALINE PHOSPHATASE 93 U/L (45-117); BILIRUBIN,TOTAL 0.3 mg/dL (0.2-1.0); CREATININE 0.63 mg/dL (0.7-1.3); TOTAL PROTEIN 6.2 g/dL (6.4-8.2)
[2018-08-10] MEDS: HEPARIN 5,000 UNITS/ML, 1ML SQ SCH ×3 (06:20→21:37)
[2018-08-10] MEDS ORDERED: MAGNESIUM SULFATE 3 GM in SODIUM CHLORIDE 0.9% 100 ML IV ONE (06:30)
[2018-08-10 07:13] VITALS: BP 115/71
[2018-08-10] MEDS: SODIUM CHLORIDE FLUSH 10ML SYR IVF SCH ×2 (07:27→21:36)
[2018-08-10] MEDS: INSULIN LISPRO 100 UNITS/ML, PEN SQ-INSULIN SCH ×4 (07:47→21:38)
[2018-08-10] MEDS: THIAMINE 100MG TABLET PO SCH (07:47)
[2018-08-10] MEDS: PANTOPRAZOLE 40 MG IV IVPush SCH (07:47)
[2018-08-10] MEDS: CALCIUM CARBONATE 500 MG TABLET PO SCH ×2 (07:47→21:36)
[2018-08-10] MEDS: NEUTRA PHOS K 250 MG TABLET PO SCH ×3 (07:47→21:36)
[2018-08-10] MEDS: INSULIN GLARGINE 100 UNITS/ML, PEN SQ-INSULIN SCH ×2 (07:47→21:38)
[2018-08-10] MEDS: MULTIVITAMINS/MINERALS TABLET PO SCH (07:48)
[2018-08-10] MEDS ORDERED: MELATONIN 3 MG TABLET PO PRN (09:00)
[2018-08-10 14:04] VITALS: BP 129/75
[2018-08-10] MEDS: BACITRACIN/POLYMYXIN B OPHTH OINT 3.5GM EACHEYE SCH ×2 (15:54→21:00)
[2018-08-10 21:16] VITALS: BP 165/86
[2018-08-10] MEDS: GUAIFENESIN 200 MG TABLET PO PRN (21:56)
[2018-08-11 03:34] VITALS: BP 138/70
[2018-08-11 05:34] LABS: BASOPHILS # (AUTO) 0.02 x10^3/uL (0-0.1); BASOPHILS % (AUTO) 0 % (0-1); EOSINOPHILS # (AUTO) 0.09 x10^3/uL (0-0.4); EOSINOPHILS % (AUTO) 1 % (1-7); LYMPHOCYTES # (AUTO) 2.24 x10^3/uL (1-3.4); LYMPHOCYTES % (AUTO) 24 % (22-44); MD NO; MEAN CORPUSCULAR HEMOGLOBIN 31.9 pg (27.5-34.5); MEAN CORPUSCULAR HGB CONC 34.5 g/dL (33.2-36.2); MEAN CORPUSCULAR VOLUME 92.7 fL (81-97); MEAN PLATELET VOLUME 7.9 fL (7.4-10.4); MONOCYTES # (AUTO) 0.97 x10^3/uL (0.2-0.8); MONOCYTES % (AUTO) 10 % (2-9); NEUTROPHILS # (AUTO) 6.05 x10^3/uL (1.8-6.8); NEUTROPHILS % (AUTO) 65 % (42-75); PLATELET COUNT 243 x10^3/uL (130-400); RED BLOOD COUNT 4.12 x10^6/uL (4.38-5.82); RED CELL DISTRIBUTION WIDTH 13.4 % (9.4-14.8)
[2018-08-11 05:41] LABS: ALBUMIN 2.4 g/dL (3.4-5.0); ANION GAP 5 mmol/L (5-15); CALCIUM 8.9 mg/dL (8.5-10.1); CHLORIDE 102 mmol/L (98-107)
[2018-08-11 05:46] LABS: ALANINE AMINOTRANSFERASE 10 U/L (12-78); ALKALINE PHOSPHATASE 81 U/L (45-117); BILIRUBIN,TOTAL 0.2 mg/dL (0.2-1.0); CREATININE 0.62 mg/dL (0.7-1.3); TOTAL PROTEIN 6.2 g/dL (6.4-8.2)
[2018-08-11] MEDS ORDERED: PANTOPROZOLE 40MG TABLET PO SCH (06:00)
[2018-08-11] MEDS: HEPARIN 5,000 UNITS/ML, 1ML SQ SCH ×2 (06:21→13:41)
[2018-08-11 06:56] VITALS: BP 154/79
[2018-08-11] MEDS: INSULIN LISPRO 100 UNITS/ML, PEN SQ-INSULIN SCH ×2 (07:04→11:31)
[2018-08-11] MEDS: SODIUM CHLORIDE FLUSH 10ML SYR IVF SCH (08:53)
[2018-08-11] MEDS: CALCIUM CARBONATE 500 MG TABLET PO SCH (09:01)
[2018-08-11] MEDS: NEUTRA PHOS K 250 MG TABLET PO SCH (09:01)
[2018-08-11] MEDS: MULTIVITAMINS/MINERALS TABLET PO SCH (09:01)
[2018-08-11] MEDS: BACITRACIN/POLYMYXIN B OPHTH OINT 3.5GM EACHEYE SCH (09:01)
[2018-08-11] MEDS: THIAMINE 100MG TABLET PO SCH (09:01)
[2018-08-11] MEDS: INSULIN GLARGINE 100 UNITS/ML, PEN SQ-INSULIN SCH (09:02)
[2018-08-11] MEDS: SODIUM CHLORIDE 0.9% 1,000 ML IV SCH (09:08)
[2018-08-11] MEDS: GUAIFENESIN 200 MG TABLET PO PRN (09:08)
[2018-08-11 13:58] VITALS: BP 130/76
[2018-08-11] MEDS ORDERED: INSU100I13 SQ-INSULIN (14:20)
[2018-08-11 15:05] VITALS: BP 135/81
== END 2018-08-11 15:45 | disposition home or self-care (01) | DRG 637 ==
LOC: ED 20:44 → EDIP 21:15 → CCU 08-07 10:42 → 4NOR 08-07 17:38
PROVIDERS: ADMIT Internal Medicine; ATTEND Hospitalist
DX: E11.10 Type 2 diabetes mellitus with ketoacidosis without coma (principal); N17.0 Acute kidney failure with tubular necrosis; D72.829 Elevated white blood cell count, unspecified; E86.0 Dehydration; F10.20 Alcohol dependence, uncomplicated; F17.210 Nicotine dependence, cigarettes, uncomplicated; F25.9 Schizoaffective disorder, unspecified; F41.1 Generalized anxiety disorder; Z59.0 Homelessness; Z79.4 Long term (current) use of insulin; Z91.14 Patient's other noncompliance with medication regimen
CPT/HCPCS: 36415; 71046; 74022; 80048; 80053; 80061; 81003; 82010; 82274; 82962; 83036; 83690; 83735; 84100; 84439; 84443; 85025; 87081; 93005; 94644; 99285; G0378; J1644; J1815; J1940; J2405; J3475; Q0162; C9113; J0360; J7030; J7050

== ENCOUNTER 2018-09-14 06:11 | Emergency (ER) | payer MEDICARE ==
[~2018-09-14] VITALS: Ht 177.8 cm; Wt 75.6 kg
[~2018-09-14 06:11] MED LIST changes: +INSU100I13 SQ-INSULIN
--- NOTE | 2018-09-14 06:54 | NUR ---
REPORT GIVEN TO DELMI KUNZ
[2018-09-14 06:59] LABS: BASOPHILS # (AUTO) 0.02 x10^3/uL (0-0.1); BASOPHILS % (AUTO) 0 % (0-1); EOSINOPHILS # (AUTO) 0.03 x10^3/uL (0-0.4); EOSINOPHILS % (AUTO) 1 % (1-7); LYMPHOCYTES # (AUTO) 0.99 x10^3/uL (1-3.4); LYMPHOCYTES % (AUTO) 26 % (22-44); MD NO; MEAN CORPUSCULAR HGB CONC 34.1 g/dL (33.2-36.2); MEAN CORPUSCULAR VOLUME 90.9 fL (81-97); MEAN PLATELET VOLUME 7.6 fL (7.4-10.4); MONOCYTES # (AUTO) 0.47 x10^3/uL (0.2-0.8); MONOCYTES % (AUTO) 12 % (2-9); NEUTROPHILS # (AUTO) 2.38 x10^3/uL (1.8-6.8); NEUTROPHILS % (AUTO) 61 % (42-75); PLATELET COUNT 235 x10^3/uL (130-400); RED BLOOD COUNT 3.96 x10^6/uL (4.38-5.82); RED CELL DISTRIBUTION WIDTH 13.1 % (9.4-14.8)
[2018-09-14 07:01] LABS: PH, VENOUS 7.344 pH (7.320-7.420)
[2018-09-14 07:11] LABS: ALBUMIN 3.5 g/dL (3.4-5.0); ANION GAP 6 mmol/L (5-15); CALCIUM 8.2 mg/dL (8.5-10.1); CHLORIDE 111 mmol/L (98-107); CREATININE 0.65 mg/dL (0.7-1.3)
[2018-09-14 07:46] LABS: MICROSCOPIC NOT IND
[2018-09-14 07:51] LABS: ACETONE, SERUM Negative (Negative)
[2018-09-14 08:01] LABS: CULTURE INDICATED? NO
[2018-09-14 09:27] VITALS: BP 138/82
== END 2018-09-14 09:30 | disposition home or self-care (01) ==
LOC: ED 07:44
DX: R51 Headache (principal); E10.65 Type 1 diabetes mellitus with hyperglycemia; F41.1 Generalized anxiety disorder; F20.9 Schizophrenia, unspecified
CPT/HCPCS: 36415; 70450; 80048; 81003; 82010; 82040; 82803; 85025; 93005; 99284